=== PATIENT | male | born 1960 | race Caucasian/White ===

== ENCOUNTER → 2016-08-19 | Day surgery (SDC) | payer BC, OTHER ==
[~2016-08-19] VITALS: Ht 167.6 cm; Wt 65.8 kg
[~2016-08-19] MED LIST: AFRI0.052; BREO1INH INH; DESFLURANE 240 ML INHALANT As Ordered ONE; GLYCOPYRROLATE INJ 0.2 MG/ML 2 ML VIAL As Ordered ONE; IBUPROFEN 800 MG TAB PO PRN; LIDOCAINE 2% INJ 100 MG/5 ML SDV (FOR ANES.) As Ordered ONE; LIDOCAINE W/EPINEPHRINE 1% 20ML VIAL As Ordered ONE; LIDOCAINE W/EPINEPHRINE 1% 20ML VIAL XX ONE; LR 1,000 ML IV SCH; MEPERIDINE INJ 25 MG/ML VIAL (J2175) As Ordered ONE; METHYLENE BLUE 1% 10 ML VIAL (Q9968) As Ordered ONE; METHYLENE BLUE 1% 10 ML VIAL (Q9968) XX ONE; METOCLOPRAMIDE INJ 10MG/2ML VIAL (J2765) As Ordered ONE; MIDAZOLAM INJ 2 MG/2 ML VIAL (J2250) As Ordered ONE; NEOSTIGMINE 1MG/ML 5 ML SYRINGE (J2710) As Ordered ONE; ONDANSETRON 4MG/2ML VIAL (J2405) As Ordered ONE; ONDANSETRON 4MG/2ML VIAL (J2405) IV PRN; OXYMETAZOLINE NASAL SPRAY (AFRIN) As Ordered ONE; OXYMETAZOLINE NASAL SPRAY (AFRIN) XX ONE; PHENYLephrine HCL 500 MCG/5 ML (100MCG/ML) SYRINGE (J2370) As Ordered ONE; PROPOFOL 200 MG/20 ML VIAL As Ordered ONE; ROCURONIUM BROMIDE 50 MG/5 ML VIAL As Ordered ONE; TRAM50TA2 PO; dexameTHASONE 4 MG/ML 1ML VIAL (J1100) As Ordered ONE; fentaNYL 100 MCG/2 ML INJECTION (J3010) IV PRN; fentaNYL 250 MCG/5 ML INJECTION (J3010) As Ordered ONE
[2016-08-19] MEDS: MEPERIDINE INJ 25 MG/ML VIAL (J2175) IV PRN ×2 (13:26→13:37)
[2016-08-19] MEDS: PERCOCET 5MG/325MG TAB PO PRN ×2 (13:47→14:08)
[2016-08-19] MEDS: HYDROmorphone HCL 1 MG/ML SYRINGE (J1170) IV PRN ×2 (13:51→14:00)
[2016-08-19 15:00] VITALS: BP 125/75
--- NOTE | 2016-08-19 17:06 | ECGEPIP ---
Stationary ECG Study 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 Electronically Signed On 08-19-2016 16:44:07 EST by Vineet Garcia
--- NOTE | 2016-08-25 06:13 | RO ---
DATE OF PROCEDURE: 08/19/2016 PREOPERATIVE DIAGNOSES: 1. Deviated septum. 2. Chronic rhinitis. POSTOPERATIVE DIAGNOSES: 1. Deviated septum. 2. Chronic rhinitis. PROCEDURE: Septoplasty, partial reduction inferior turbinates. SURGEON: Dr. 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 INDICATIONS: This is a 56-year-old with long history of nasal obstruction unrelieved by medical management. DESCRIPTION OF PROCEDURE: Satisfactory general endotracheal anesthesia administered. The nose was prepared for surgery by placing cotton-soaked pledgets with Afrin solution to nasal cavity bilaterally. 1% Xylocaine with 1:100,000 epinephrine was used to inject into the nasal septum and inferior turbinates. A [place] incision was made on the left side of the nose. A mucoperichondrial flap and envelope was created on the left side of the nasal septum and carried down to the junction of the bony and cartilaginous septum. This was then with an elevator, and an envelope was then created on the right side of the septum. A [place] scissors was used to make a cut high in the perpendicular plate in the midportion of the vomer, and a central segment of the bony septum was resected. Next, with the round knife on the Burak elevator, a strip of cartilage was resected from the floor of the nose, mobilizing the quadrilateral cartilage and creating a swinging door. Then, a central segment of cartilaginous septum was resected, preserving a 1 cm dorsal and caudal strut. Double-action rongeur was used to take down deflected portions of the perpendicular plate, as well. Finally, the maxillary crest spur was taken down after elevating mucoperiosteum off both sides of it with a chisel. A segment of the resected cartilage was morselized and placed back into the septal envelope. The incision was closed using an interrupted #5-0 chromic suture. Then, a #4-0 plain suture was placed in a nilz-yon-mwwww fashion through the two leaves of mucoperichondrium to appose them. Next, the inferior turbinates were medially infractured. A #15 blade was used to make an incision on the anterior tip of the inferior turbinate. With a Burak elevator, a mucoperiosteal tunnel was created on the medial side of the turbinate. Then, the microdebrider with a 2.9 mm blade was inserted into the tunnel, and the underlying turbinate bone was weakened and partially resected using the microdebrider. Then, the turbinate was laterally outfractured. The posteroinferior tip of the turbinate was then cauterized with suction cautery. Finally, To splints were placed into the nose and sewn to the columella with a #2-0 Prolene suture. The pharyngeal pack, which had been placed at the beginning of the procedure was removed, the throat was suctioned. The patient was then awakened, extubated, and sent to recovery in satisfactory condition. He will discharged home on Percocet for pain as well as docusate 100 mg twice a day. He will be seen back in the office in 3 days for splint removal.
== END | disposition home or self-care (01) ==
LOC: M SDC 10:57
PROVIDERS: ATTEND Specialist
DX: J34.2 Deviated nasal septum (principal); J31.0 Chronic rhinitis; J44.9 Chronic obstructive pulmonary disease, unspecified; Z87.891 Personal history of nicotine dependence
CPT/HCPCS: 30520; 30802; 88300; 93005; J1100; J1170; J2175; J2250; J2370; J2405; J2710; J2765; J3010; Q9968

== ENCOUNTER → 2016-10-02 | Outpatient (CLI) | payer BC, OTHER ==
[~2016-10-02] MED LIST changes: -DESFLURANE 240 ML INHALANT As Ordered ONE; -GLYCOPYRROLATE INJ 0.2 MG/ML 2 ML VIAL As Ordered ONE; -IBUPROFEN 800 MG TAB PO PRN; -LIDOCAINE 2% INJ 100 MG/5 ML SDV (FOR ANES.) As Ordered ONE; -LIDOCAINE W/EPINEPHRINE 1% 20ML VIAL As Ordered ONE; -LIDOCAINE W/EPINEPHRINE 1% 20ML VIAL XX ONE; -LR 1,000 ML IV SCH; -MEPERIDINE INJ 25 MG/ML VIAL (J2175) As Ordered ONE; -METHYLENE BLUE 1% 10 ML VIAL (Q9968) As Ordered ONE; -METHYLENE BLUE 1% 10 ML VIAL (Q9968) XX ONE; -METOCLOPRAMIDE INJ 10MG/2ML VIAL (J2765) As Ordered ONE; -MIDAZOLAM INJ 2 MG/2 ML VIAL (J2250) As Ordered ONE; -NEOSTIGMINE 1MG/ML 5 ML SYRINGE (J2710) As Ordered ONE; -ONDANSETRON 4MG/2ML VIAL (J2405) As Ordered ONE; -ONDANSETRON 4MG/2ML VIAL (J2405) IV PRN; -OXYMETAZOLINE NASAL SPRAY (AFRIN) As Ordered ONE; -OXYMETAZOLINE NASAL SPRAY (AFRIN) XX ONE; -PHENYLephrine HCL 500 MCG/5 ML (100MCG/ML) SYRINGE (J2370) As Ordered ONE; -PROPOFOL 200 MG/20 ML VIAL As Ordered ONE; -ROCURONIUM BROMIDE 50 MG/5 ML VIAL As Ordered ONE; -dexameTHASONE 4 MG/ML 1ML VIAL (J1100) As Ordered ONE; -fentaNYL 100 MCG/2 ML INJECTION (J3010) IV PRN; -fentaNYL 250 MCG/5 ML INJECTION (J3010) As Ordered ONE
--- NOTE | 2016-10-02 10:34 | REP ---
CHEST X-RAY PA LATERAL: 10/02/2016. Comparison: 06/07/2016, 12/15/2015. Clinical history: COPD. Congestion. Findings: Two-view show the lungs hyperinflated with flattening of the diaphragms, increased AP diameter. There is some mild interstitial fibrotic change. Peribronchial thickening noted that might reflect reactive airway disease or bronchitis. Pulmonary artery hypertension is seen with prominence of the central arteries which taper rapidly. No definite infiltrate, effusion, cardiomegaly or edema. The aorta is normal for age. Airway is intact with no compression deformity in the spine on an acute basis. There is minor anterior wedging at T8 and T7 stable. No new or acute compression deformity. Impression: 1. COPD and some pulmonary artery hypertension, stable. There are a few cuffed bronchi in the perihilar regions that may reflect reactive airway disease or bronchitis. No dense consolidation, effusion, edema or other acute finding. Signed by Pa Torres MD 10/02/2016 10:56 A
== END ==
LOC: M ADAMS 10:05
PROVIDERS: ATTEND Physician Assistant Medical
DX: J44.9 Chronic obstructive pulmonary disease, unspecified (principal)

== ENCOUNTER → 2016-12-22 | Outpatient (CLI) | payer BC, OTHER ==
--- NOTE | 2016-12-22 09:31 | REP ---
PA and lateral chest: Comparisons are the PA and lateral plain film study dated 06/07/[address] dated 11/20/2014. There are no infiltrates, effusions, masses or nodules. The lung arce appear hyperinflated, as previously, compatible with COPD but requiring clinical confirmation. On the comparison CT, three tiny lung nodules are identified and unchanged from a CT of 07/16/2009. These nodules are not visible on the PA and lateral plain film studies. Cardiac size is normal. The roxanna and mediastinum are unchanged. There is mild thoracic scoliosis convex right, unchanged. There is demineralization and grade 1 compression deformity of the approximate T8 vertebral body. This is unchanged. Impression: Stable PA and lateral chest. No change from prior studies. Signed by Erasto Poon MD 12/22/2016 09:22 A
[2016-12-22 09:37] LABS: MEAN CORPUSCULAR HEMOGLOBIN 31.3 pg (27.0-33.0); MEAN CORPUSCULAR HGB CONC 35.1 g/dl (32.0-36.5); MEAN CORPUSCULAR VOLUME 89.2 fl (80.0-96.0); RED CELL DISTRIBUTION WIDTH 13.2 % (11.5-14.5); WHITE BLOOD COUNT 3.7 K/mm3 (4.0-10.0)
[2016-12-22 09:50] LABS: ALBUMIN 3.7 GM/DL (3.2-5.2); ALBUMIN/GLOBULIN RATIO 1.16 (1.00-1.93); ALKALINE PHOSPHATASE 81 U/L (45-117); ALT/SGPT 33 U/L (12-78); ANION GAP 3 MEQ/L (8-16); AST/SGOT 19 U/L (15-37); BILIRUBIN,TOTAL 0.5 MG/DL (0.2-1.0); BLOOD UREA NITROGEN 15 MG/DL (7-18); CARBON DIOXIDE LEVEL 32 MEQ/L (21-32); CHLORIDE LEVEL 109 MEQ/L (98-107); CHOLESTEROL LEVEL 212 MG/DL (<200); CREATININE FOR GFR 0.94 MG/DL (0.70-1.30); GLOMERULAR FILTRATION RATE > 60.0 (>56); GLUCOSE, FASTING 113 MG/DL (70-105); POTASSIUM SERUM 4.2 MEQ/L (3.5-5.1); SODIUM LEVEL 144 MEQ/L (136-145); TOTAL PROTEIN 6.9 GM/DL (6.4-8.2); TRIGLYCERIDES LEVEL 92 MG/DL (<150)
--- NOTE | 2016-12-23 13:43 | ECGEPIP ---
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
== END ==
LOC: M LAB 08:41
PROVIDERS: ATTEND Family Medicine
DX: R53.83 Other fatigue (principal); J44.9 Chronic obstructive pulmonary disease, unspecified; N40.1 Benign prostatic hyperplasia with lower urinary tract symptoms

== ENCOUNTER → 2017-08-28 | Outpatient (CLI) | payer BC, OTHER | LOC: M RAD 14:01 | DX: E04.1 Nontoxic single thyroid nodule (principal) | CPT/HCPCS: 76536 ==

== ENCOUNTER → 2018-03-14 | Outpatient (CLI) | payer BC, OTHER ==
[2018-03-14 12:01] LABS: HEMATOCRIT 49.7 % (42.0-52.0); HEMOGLOBIN 17.1 g/dl (13.5-17.5); MEAN CORPUSCULAR HEMOGLOBIN 30.5 pg (27.0-33.0); MEAN CORPUSCULAR HGB CONC 34.4 g/dl (32.0-36.5); MEAN CORPUSCULAR VOLUME 88.8 fl (80.0-96.0); PLATELET COUNT, AUTOMATED 274 10^3/uL (150-450); RED CELL DISTRIBUTION WIDTH 12.8 % (11.5-14.5); WHITE BLOOD COUNT 5.4 10^3/uL (4.0-10.0)
[2018-03-14 13:29] LABS: ALBUMIN 3.8 GM/DL (3.2-5.2); ALBUMIN/GLOBULIN RATIO 1.12 (1.00-1.93); ALKALINE PHOSPHATASE 71 U/L (45-117); ALT/SGPT 26 U/L (12-78); ANION GAP 6 MEQ/L (8-16); AST/SGOT 16 U/L (7-37); BILIRUBIN,TOTAL 0.6 MG/DL (0.2-1.0); BLOOD UREA NITROGEN 18 MG/DL (7-18); CALCIUM LEVEL 8.8 MG/DL (8.5-10.1); CARBON DIOXIDE LEVEL 28 MEQ/L (21-32); CHLORIDE LEVEL 110 MEQ/L (98-107); CHOLESTEROL LEVEL 206 MG/DL (<200); CHOLESTEROL RISK RATIO 4.478 (<5); CREATININE FOR GFR 0.87 MG/DL (0.70-1.30); GLOMERULAR FILTRATION RATE > 60.0 (>56); GLUCOSE, FASTING 96 MG/DL (70-100); HDL CHOLESTEROL 46 MG/DL (>40); LDL CHOLESTEROL 143 MG/DL (<100); NON-HDL-C 160 MG/DL; POTASSIUM SERUM 4.6 MEQ/L (3.5-5.1); PROSTATIC SPECIFIC AG MONITOR 0.95 NG/ML (< 4.0); SODIUM LEVEL 144 MEQ/L (136-145); TESTOSTERONE 483 NG/DL (241-827); THYROID STIMULATING HORMONE 0.295 uIU/ML (0.358-3.740); TOTAL 25(OH) VITAMIN D 34.9 NG/ML (30.0-100.0); TOTAL PROTEIN 7.2 GM/DL (6.4-8.2); TRIGLYCERIDES LEVEL 83 MG/DL (<150)
[2018-03-14 16:01] LABS: ESTIMATED AVERAGE GLUCOSE 111 MG/DL (60-110); HEMOGLOBIN A1c 5.5 %
== END ==
LOC: M LAB 10:56
DX: I10 Essential (primary) hypertension (principal); J44.9 Chronic obstructive pulmonary disease, unspecified; R53.83 Other fatigue
CPT/HCPCS: 71046

== ENCOUNTER 2018-05-02 10:15 | Day surgery (SDC) | payer BC, OTHER ==
[2018-05-02] MEDS: NS 1,000 ML IV (10:30)
[2018-05-02] MEDS ORDERED: PROPOFOL 200 MG/20 ML VIAL As Ordered (10:41)
[2018-05-02] MEDS ORDERED: LIDOCAINE 2% INJ 100 MG/5 ML SDV (FOR ANES.) As Ordered (10:41)
== END 2018-05-02 13:09 | disposition home or self-care (01) ==
LOC: M OPP 13:09
DX: Z12.11 Encounter for screening for malignant neoplasm of colon (principal); Z86.010 Personal history of colon polyps; M12.9 Arthropathy, unspecified; J44.9 Chronic obstructive pulmonary disease, unspecified; Z79.899 Other long term (current) drug therapy
CPT/HCPCS: 45378

== ENCOUNTER → 2018-09-07 | Outpatient (REF) | payer OTHER | LOC: M LAB REF 19:09 | PROVIDERS: ATTEND Physician Assistant Medical | DX: J02.9 Acute pharyngitis, unspecified (principal) ==

== ENCOUNTER → 2018-10-23 | Outpatient (CLI) | payer BC, OTHER ==
--- NOTE | 2018-10-24 03:23 | REP ---
Clinical: Trauma. Technique: Frontal view of the chest with four views of the left hemithorax. Findings: Frontal view of the chest demonstrates no acute cardiopulmonary process. Multiple views of the left hemithorax demonstrates no obvious acute rib fracture, but very subtle injury involving the lateral aspect of the sixth through ninth ribs cannot definitively be excluded. Impression: No definite acute fracture identified. However subtle injuries involving the lateral aspect of the 6th - 9th ribs cannot definitively be excluded. Electronically Signed by Lamont Diamond MD 10/24/2018 03:14 A
== END ==
LOC: M ADAMS 11:09
PROVIDERS: ATTEND Physician Assistant Medical
DX: S20.212A Contusion of left front wall of thorax, initial encounter (principal); X58.XXXA Exposure to other specified factors, initial encounter; Y92.89 Other specified places as the place of occurrence of the external cause

== ENCOUNTER → 2018-11-16 | Outpatient (REF) | payer OTHER | LOC: M LAB REF 12:15 | PROVIDERS: ATTEND Physician Assistant Medical | DX: J02.9 Acute pharyngitis, unspecified (principal) ==

== ENCOUNTER → 2019-03-18 | Outpatient (CLI) | payer BC, OTHER ==
[2019-03-18 12:18] LABS: HEMATOCRIT 49.2 % (42.0-52.0); HEMOGLOBIN 17.3 g/dl (13.5-17.5); MEAN CORPUSCULAR HEMOGLOBIN 30.1 pg (27.0-33.0); MEAN CORPUSCULAR HGB CONC 35.2 g/dl (32.0-36.5); MEAN CORPUSCULAR VOLUME 85.6 fl (80.0-96.0); PLATELET COUNT, AUTOMATED 238 10^3/uL (150-450); RED BLOOD COUNT 5.75 10^6/uL (4.30-6.10); WHITE BLOOD COUNT 4.3 10^3/uL (4.0-10.0)
[2019-03-18 12:43] LABS: ALT/SGPT 30 U/L (12-78); BILIRUBIN,TOTAL 0.9 MG/DL (0.2-1.0); BLOOD UREA NITROGEN 16 MG/DL (7-18); CALCIUM LEVEL 9.1 MG/DL (8.5-10.1); CARBON DIOXIDE LEVEL 26 MEQ/L (21-32); CHLORIDE LEVEL 111 MEQ/L (98-107); CHOLESTEROL LEVEL 219 MG/DL (<200); CREATININE FOR GFR 0.86 MG/DL (0.70-1.30); GLOMERULAR FILTRATION RATE > 60.0 (>56); GLUCOSE, FASTING 92 MG/DL (70-100); HDL CHOLESTEROL 50 MG/DL (>40); LDL CHOLESTEROL 143 MG/DL (<100); NON-HDL-C 169 MG/DL; POTASSIUM SERUM 4.4 MEQ/L (3.5-5.1); PROSTATIC SPECIFIC AG MONITOR 0.83 NG/ML (< 4.00); SODIUM LEVEL 143 MEQ/L (136-145); TESTOSTERONE 504 NG/DL (241-827); THYROID STIMULATING HORMONE 0.557 uIU/ML (0.358-3.740); TOTAL PROTEIN 6.8 GM/DL (6.4-8.2); TRIGLYCERIDES LEVEL 130 MG/DL (<150)
[2019-03-18 13:34] LABS: HEMOGLOBIN A1c 5.3 %
--- NOTE | 2019-03-18 13:58 | REP ---
PA and lateral chest: Comparison is 03/14/2018. The lung arce are clear. The cardiac size is normal. The roxanna, mediastinum, and skeletal structures are unremarkable. Impression: Negative PA and lateral chest. There is no interval change. Electronically Signed by Erasto Poon MD 03/18/2019 01:49 P
--- NOTE | 2019-03-18 20:20 | ECGEPIP ---
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
== END ==
LOC: M LAB 11:24
PROVIDERS: ATTEND Family Medicine
DX: J44.9 Chronic obstructive pulmonary disease, unspecified (principal)

== ENCOUNTER → 2019-07-04 | Outpatient (CLI) | payer BC, OTHER ==
--- NOTE | 2019-07-04 14:00 | ECGEPIP ---
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
== END ==
LOC: M EKG 08:35
PROVIDERS: ATTEND Orthopaedic Surgery
DX: Z01.810 Encounter for preprocedural cardiovascular examination (principal)

== ENCOUNTER → 2019-10-30 | Outpatient (CLI) | payer BC, OTHER ==
--- NOTE | 2019-10-31 02:54 | REP ---
Clinical: COPD . Comparison: 03/18/2019 . Technique: PA and lateral. Findings: The mediastinum and cardiac silhouette are normal. The lung arce demonstrate stable chronic changes without acute consolidation, effusion, or pneumothorax. The skeletal structures are intact and normal. Impression: 1. No acute cardiopulmonary process. Electronically Signed by Lamont Diamond MD 10/31/2019 02:46 A
== END ==
LOC: M WUC 14:02
PROVIDERS: ATTEND Family Medicine
DX: J44.9 Chronic obstructive pulmonary disease, unspecified (principal)

== ENCOUNTER → 2020-02-06 | Outpatient (CLI) | payer BC, OTHER ==
--- NOTE | 2020-03-06 15:03 | SLEEPCENT ---
DATE: 02/06/2020 ORDERED BY: Kati Villa Nocturnal polysomnography was performed for evaluation of sleep physiology in this patient with a history of snoring and nonrestorative sleep. There were 7 hours and 23 minutes of data reviewed. There was 383.5 minutes of sleep identified. Sleep latency was mildly prolonged at 29 minutes. REM latency was short at 55 minutes. Sleep architecture showed significant fragmentation. Overall sleep efficiency was 87.4%. There was a significant reduction in REM time, and three REM cycles were noted. The electrocardiogram showed a sinus rhythm with an average heart rate of 60 beats per minute. EEG showed normal waveforms for wake and sleep. There were 49 respiratory events identified of 10 seconds in duration or greater for an apnea-hypopnea index of 7.7. The events were more frequently obstructive; however, 22 mixed and central apneas were also seen. Obstructive events were seen regardless of sleep stage or body posture. Arousals from respiratory events occurred 3.8 times per hour, and oxygen desaturations were seen below 90% with significant limb activity, but limb movement arousal index was only 7. IMPRESSION: Obstructive sleep apnea syndrome (G47.33). Apnea-hypopnea index 7.7. RECOMMENDATION: The patient should be encouraged to return to the sleep disorder center for pressure therapy. In the interim, alcohol and sedative avoidance should be practiced and caution exercised during the operation of motor vehicles. ALBERTOD
== END ==
LOC: M SLEEP 20:00
PROVIDERS: ATTEND Nurse Practitioner Adult Health
DX: G47.33 Obstructive sleep apnea (adult) (pediatric) (principal)

== ENCOUNTER → 2020-02-17 | Outpatient (CLI) | payer BC, OTHER ==
--- NOTE | 2020-03-19 11:16 | REP ---
CHEST X-RAY CLINICAL: Chronic obstructive pulmonary disease (COPD). Pneumonia. TECHNIQUE: PA and lateral. COMPARISON: 10/30/2019. FINDINGS: Mediastinum and cardiac silhouette are normal. Lung arce demonstrate stable chronic interstitial changes consistent with COPD. No focal consolidation, effusion, or pneumothorax. Skeletal structures are intact. IMPRESSION: Chronic stable changes. No focal consolidation. MTDD
== END ==
LOC: M ADAMS 10:31
PROVIDERS: ATTEND Family Medicine
DX: J44.9 Chronic obstructive pulmonary disease, unspecified (principal); J18.9 Pneumonia, unspecified organism

== ENCOUNTER → 2020-04-07 | Outpatient (CLI) | payer BC, OTHER ==
--- NOTE | 2020-04-28 13:41 | SLEEPCENT ---
DATE: 04/07/2020 ORDERED BY: Kati Villa NP Nocturnal polysomnography was performed for the titration of pressure therapy in this patient with obstructive sleep apnea syndrome, apnea-hypopnea index 7.7. For testing, the patient was fit with a ResMed Airfit F20 full face mask of large size, 4 cm of water pressure were applied to the circuit and the lights were extinguished. Seven hours and 54 minutes of data were reviewed. There were 350.5 minutes of sleep identified. Sleep latency was prolonged at 42.5 minutes. REM latency was prolonged at 126 minutes. Sleep architecture improved later in the study on optimal pressure therapy. Overall sleep efficiency was 74.7%. The electrocardiogram showed a sinus rhythm with an average heart rate of 60 beats per minute. EEG showed normal waveforms for wake and sleep. Respiratory events were fully palliated with CPAP at a pressure of +11. There was some activity in the limb leads. Limb movement arousal index on this occasion was 6.3. IMPRESSION: Obstructive sleep apnea syndrome (G47.33). RECOMMENDATION: Nightly use of pressure therapy 11 cm of water. MTDD
== END ==
LOC: M SLEEP 20:00
PROVIDERS: ATTEND Nurse Practitioner Adult Health
DX: G47.33 Obstructive sleep apnea (adult) (pediatric) (principal)

== ENCOUNTER → 2020-05-06 | Outpatient (CLI) | payer BC, OTHER ==
[2020-05-06 12:33] LABS: HEMATOCRIT 50.1 % (42.0-52.0); MEAN CORPUSCULAR HEMOGLOBIN 29.5 pg (27.0-33.0); MEAN CORPUSCULAR HGB CONC 33.9 g/dl (32.0-36.5); MEAN CORPUSCULAR VOLUME 86.8 fl (80.0-96.0); PLATELET COUNT, AUTOMATED 241 10^3/uL (150-450); RED BLOOD COUNT 5.77 10^6/uL (4.30-6.10); WHITE BLOOD COUNT 4.3 10^3/uL (4.0-10.0)
[2020-05-06 13:04] LABS: ALBUMIN 4.3 GM/DL (3.2-5.2); ALT/SGPT 40 U/L (12-78); BILIRUBIN,TOTAL 0.9 MG/DL (0.2-1.0); BLOOD UREA NITROGEN 17 MG/DL (7-18); CALCIUM LEVEL 9.6 MG/DL (8.8-10.2); CARBON DIOXIDE LEVEL 26 MEQ/L (21-32); CHLORIDE LEVEL 108 MEQ/L (98-107); CHOLESTEROL LEVEL 208 MG/DL (<200); CHOLESTEROL RISK RATIO 3.924 (<5); CREATININE FOR GFR 0.94 MG/DL (0.70-1.30); GLOMERULAR FILTRATION RATE > 60.0 (>49); GLUCOSE, FASTING 102 MG/DL (70-100); HDL CHOLESTEROL 53 MG/DL (>40); LDL CHOLESTEROL 140 MG/DL (<100); NON-HDL-C 155 MG/DL; POTASSIUM SERUM 4.4 MEQ/L (3.5-5.1); PROSTATIC SPECIFIC AG MONITOR 1.36 NG/ML (< 4.00); SODIUM LEVEL 140 MEQ/L (136-145); TESTOSTERONE 642 NG/DL (241-827); THYROID STIMULATING HORMONE 0.712 uIU/ML (0.358-3.740); TRIGLYCERIDES LEVEL 75 MG/DL (<150)
[2020-05-06 14:12] LABS: HEMOGLOBIN A1c 5.2 %
--- NOTE | 2020-05-06 17:28 | ECGEPIP ---
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
--- NOTE | 2020-05-07 03:18 | REP ---
INDICATION: COPD,FATIGUE, LAB 1ST, EKG 2ND, XRAY 3RD COMPARISON: 02/17/2020 TECHNIQUE: PA and lateral. FINDINGS: The mediastinum and cardiac silhouette are normal. The lung arce are clear and without acute consolidation, effusion, or pneumothorax. The skeletal structures are intact and normal. IMPRESSION: No acute cardiopulmonary process. <Electronically signed by Lamont Diamond > 05/07/20 [id number]
== END ==
LOC: M LAB 11:54
PROVIDERS: ATTEND Family Medicine
DX: J44.9 Chronic obstructive pulmonary disease, unspecified (principal); R53.83 Other fatigue; E29.1 Testicular hypofunction

== ENCOUNTER → 2020-05-27 | Outpatient (REF) | payer OTHER | LOC: M LAB REF 13:17 | PROVIDERS: ATTEND Family Medicine | DX: M54.5 Low back pain (principal) ==

== ENCOUNTER → 2020-09-08 | Outpatient (CLI) | payer BC, OTHER ==
[2020-09-08 12:30] LABS: FREE THYROXINE INDEX 3.8 % (1.4-3.8); THYROID STIMULATING HORMONE 0.506 uIU/ML (0.358-3.740); THYROXINE (T4) 11.9 UG/DL (4.5-12.0); TOTAL T3 144.8 NG/DL (60.0-181.0)
[2020-09-09 11:09] LABS: SSA SJOGRENS A <0.2 AI (0.0-0.9); SSB SJOGRENS B <0.2 AI (0.0-0.9)
== END ==
LOC: M LAB 10:03
PROVIDERS: ATTEND Ophthalmology
DX: H16.223 Keratoconjunctivitis sicca, not specified as Sjogren's, bilateral (principal)

== ENCOUNTER → 2021-01-15 | Outpatient (CLI) | payer BC, OTHER ==
--- NOTE | 2021-01-15 11:32 | REP ---
INDICATION: COPD. COMPARISON: Comparison chest x-ray May 06, 2020. TECHNIQUE: Two views.. FINDINGS: The lungs are well inflated and free of infiltrate. The pleural angles are sharp. The heart size is normal. Pulmonary vasculature is not increased. No significant bony abnormality is seen. IMPRESSION: No active disease.. <Electronically signed by Abdiel Truong > 01/15/21 [id number]
== END ==
LOC: M RAD 10:27
PROVIDERS: ATTEND Family Medicine
DX: J44.9 Chronic obstructive pulmonary disease, unspecified (principal)

== ENCOUNTER → 2021-05-11 | Outpatient (CLI) | payer BC, OTHER ==
--- NOTE | 2021-05-11 11:37 | REP ---
INDICATION: COPD COMPARISON: 01/15/2021 TECHNIQUE: PA and lateral. FINDINGS: The mediastinum and cardiac silhouette are normal. The lung arce are clear and without acute consolidation, effusion, or pneumothorax. The skeletal structures are intact and normal. IMPRESSION: No acute cardiopulmonary process. <Electronically signed by Lamont Diamond > 05/11/21 [id number]
== END ==
LOC: M RAD 11:14
PROVIDERS: ATTEND Family Medicine
DX: J44.9 Chronic obstructive pulmonary disease, unspecified (principal)

== ENCOUNTER → 2021-06-30 | Outpatient (CLI) | payer BC, OTHER ==
[2021-06-30 12:54] LABS: HEMATOCRIT 47.8 % (42.0-52.0); HEMOGLOBIN 16.6 g/dl (13.5-17.5); MEAN CORPUSCULAR HEMOGLOBIN 30.3 pg (27.0-33.0); MEAN CORPUSCULAR HGB CONC 34.7 g/dl (32.0-36.5); MEAN CORPUSCULAR VOLUME 87.2 fl (80.0-96.0); PLATELET COUNT, AUTOMATED 229 10^3/uL (150-450); RED BLOOD COUNT 5.48 10^6/uL (4.30-6.10); WHITE BLOOD COUNT 5.4 10^3/uL (4.0-10.0)
[2021-06-30 13:59] LABS: ALT/SGPT 34 U/L (12-78); BILIRUBIN,TOTAL 0.6 MG/DL (0.2-1.0); BLOOD UREA NITROGEN 12 MG/DL (7-18); CALCIUM LEVEL 9.1 MG/DL (8.8-10.2); CARBON DIOXIDE LEVEL 27 MEQ/L (21-32); CHLORIDE LEVEL 110 MEQ/L (98-107); CHOLESTEROL LEVEL 203 MG/DL (<200); CHOLESTEROL RISK RATIO 3.903 (<5); GLOMERULAR FILTRATION RATE > 60.0 (>49); GLUCOSE, FASTING 99 MG/DL (70-100); HDL CHOLESTEROL 52 MG/DL (>40); LDL CHOLESTEROL 128 MG/DL (<100); NON-HDL-C 151 MG/DL; POTASSIUM SERUM 4.1 MEQ/L (3.5-5.1); SODIUM LEVEL 140 MEQ/L (136-145); TESTOSTERONE 450 NG/DL (241-827); TRIGLYCERIDES LEVEL 116 MG/DL (<150)
[2021-06-30 14:00] LABS: ALBUMIN 3.9 GM/DL (3.2-5.2); PROSTATIC SPECIFIC AG MONITOR 1.01 NG/ML (< 4.00); THYROID STIMULATING HORMONE 0.473 uIU/ML (0.358-3.740)
[2021-06-30 14:04] LABS: HEMOGLOBIN A1c 5.6 %
--- NOTE | 2021-06-30 20:52 | ECGEPIP ---
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 Nonspecific ST-T abnormality. No significant change compared with 05/06/2020. Electronically Signed on 06-30-2021 20:52:12 EST by Vineet Garcia
--- NOTE | 2021-07-01 07:31 | REP ---
INDICATION: WPN SECATICA COMPARISON: None. TECHNIQUE: AP, lateral, bilateral oblique, and coned-down views of the lumbar spine. FINDINGS: Alignment and lordosis maintained. Vertebral bodies are intact. No acute fracture/compression injury or subluxation. Disc spaces are relatively normal/age-appropriate. No obvious spondylolysis or spondylolisthesis. IMPRESSION: Age-appropriate lumbosacral Spine series. No acute fracture/compression injury or subluxation. <Electronically signed by Lamont Diamond > 07/01/21 [id number]
== END ==
LOC: M EKG 11:50
PROVIDERS: ATTEND Family Medicine
DX: J44.9 Chronic obstructive pulmonary disease, unspecified (principal); I10 Essential (primary) hypertension; M54.30 Sciatica, unspecified side

== ENCOUNTER → 2021-11-30 | Outpatient (REF) | payer BC, OTHER | LOC: M LAB REF 12:57 | PROVIDERS: ATTEND Family Medicine | DX: Z79.899 Other long term (current) drug therapy (principal) ==

== ENCOUNTER → 2022-01-05 | Outpatient (CLI) | payer BC, OTHER | LOC: M RAD 08:53 | PROVIDERS: ATTEND Family Medicine | DX: J18.9 Pneumonia, unspecified organism (principal) ==

== ENCOUNTER → 2022-01-21 | Outpatient (CLI) | payer BC, OTHER | LOC: M RAD 10:17 | PROVIDERS: ATTEND Family Medicine | DX: J44.9 Chronic obstructive pulmonary disease, unspecified (principal); R91.8 Other nonspecific abnormal finding of lung field ==

== ENCOUNTER 2022-02-19 19:14 | Emergency (ER) | payer BC, OTHER ==
[~2022-02-19] VITALS: Ht 167.6 cm; Wt 67.7 kg
[2022-02-19] MEDS ORDERED: ADV250INH PO (19:31)
[2022-02-19] MEDS ORDERED: traMADol 50 MG TAB PO ONE (20:50)
[2022-02-19] MEDS ORDERED: LIDOCAINE 4% CREAM 5GM (LMX4) TOP ONE (20:50)
[2022-02-19] MEDS ORDERED: LIDO1CRE2 TOP (20:51)
[2022-02-19] MEDS ORDERED: TRAM50TA2 PO (20:51)
[2022-02-19 21:29] VITALS: BP 127/70
== END 2022-02-19 21:32 | disposition home or self-care (01) ==
LOC: M ED 19:14
DX: S89.91XA Unspecified injury of right lower leg, initial encounter (principal); M25.461 Effusion, right knee; W19.XXXA Unspecified fall, initial encounter; Y92.099 Unspecified place in other non-institutional residence as the place of occurrence of the external cause; Y93.89 Activity, other specified; J44.9 Chronic obstructive pulmonary disease, unspecified

== ENCOUNTER → 2022-06-03 | Outpatient (CLI) | payer BC, OTHER ==
[~2022-06-03] MED LIST changes: +ADV250INH PO; +LIDO1CRE2 TOP
[2022-06-03 09:42] LABS: APPEARANCE, URINE MANUAL CLEAR (CLEAR); COLOR, URINE MANUAL YELLOW (YELLOW)
[2022-06-03 09:43] LABS: BILIRUBIN, URINE MANUAL NEGATIVE (NEGATIVE); BLOOD URINE MANUAL NEGATIVE (NEGATIVE); GLUCOSE, URINE (UA) MANUAL NEGATIVE (NEGATIVE); KETONE, URINE MANUAL NEGATIVE (NEGATIVE); LEUKOCYTE ESTERASE, URINE MAN NEGATIVE (NEGATIVE); NITRITE, URINE MANUAL NEGATIVE (NEGATIVE); PROTEIN, URINE MANUAL NEGATIVE (NEGATIVE); UROBILINOGEN, URINE MANUAL NORMAL (NORMAL)
[2022-06-03 09:44] LABS: HEMATOCRIT 50.4 % (42.0-52.0); HEMOGLOBIN 17.2 g/dl (13.5-17.5); MEAN CORPUSCULAR HEMOGLOBIN 29.8 pg (27.0-33.0); MEAN CORPUSCULAR HGB CONC 34.1 g/dl (32.0-36.5); MEAN CORPUSCULAR VOLUME 87.2 fl (80.0-96.0); PLATELET COUNT, AUTOMATED 235 10^3/uL (150-450); RED BLOOD COUNT 5.78 10^6/uL (4.30-6.10); WHITE BLOOD COUNT 4.9 10^3/uL (4.0-10.0)
[2022-06-03 09:51] LABS: HEMOGLOBIN A1c 5.2 % (4.0-6.0)
[2022-06-03 10:17] LABS: ALBUMIN 3.9 G/DL (3.2-5.2); ALKALINE PHOSPHATASE 69 U/L (46-116); ALT/SGPT 26 U/L (7.0-40); AST/SGOT 17 U/L (<34); BILIRUBIN,TOTAL 0.7 MG/DL (0.3-1.2); BLOOD UREA NITROGEN 14 MG/DL (9-23); CALCIUM LEVEL 8.8 MG/DL (8.3-10.6); CARBON DIOXIDE LEVEL 26 MMOL/L (20-31); CHLORIDE LEVEL 108 MMOL/L (98-107); CHOLESTEROL LEVEL 196 MG/DL (<200); CHOLESTEROL RISK RATIO 4.06 (<5); GLOMERULAR FILTRATION RATE > 60.0 (>49); GLUCOSE, FASTING 106 MG/DL (74-106); HDL CHOLESTEROL 48.2 MG/DL (>40); LDL CHOLESTEROL 125.4 MG/DL (<100); NON-HDL-C 148 MG/DL; POTASSIUM SERUM 4.6 MMOL/L (3.5-5.1); PROSTATIC SPECIFIC AG MONITOR 0.85 NG/ML (< 4.00); SODIUM LEVEL 142 MMOL/L (136-145); TESTOSTERONE 624 NG/DL (241-827); THYROID STIMULATING HORMONE 1.035 uIU/ML (0.55-4.78); TRIGLYCERIDES LEVEL 112 MG/DL (<150)
== END ==
LOC: M RAD 08:28
PROVIDERS: ATTEND Family Medicine
DX: I10 Essential (primary) hypertension (principal); R53.83 Other fatigue; E03.9 Hypothyroidism, unspecified; M25.552 Pain in left hip

== ENCOUNTER → 2022-07-05 | Outpatient (CLI) | payer BC, OTHER | LOC: M RAD 08:45 | PROVIDERS: ATTEND Family Medicine | DX: J44.9 Chronic obstructive pulmonary disease, unspecified (principal) ==

== ENCOUNTER → 2022-12-19 | Outpatient (CLI) | payer BC, OTHER | LOC: M RAD 09:52 | PROVIDERS: ATTEND Family Medicine | DX: J44.9 Chronic obstructive pulmonary disease, unspecified (principal); M51.34 Other intervertebral disc degeneration, thoracic region ==

== ENCOUNTER → 2023-02-24 | Outpatient (CLI) | payer BC, OTHER | LOC: M RAD 09:08 | PROVIDERS: ATTEND Family Medicine | DX: J44.9 Chronic obstructive pulmonary disease, unspecified (principal); M47.814 Spondylosis without myelopathy or radiculopathy, thoracic region ==

== ENCOUNTER → 2023-04-19 | Outpatient (CLI) | payer BC, OTHER ==
[2023-04-19 11:01] LABS: HEMATOCRIT 47.2 % (42.0-52.0); HEMOGLOBIN 16.6 g/dl (13.5-17.5); MEAN CORPUSCULAR HEMOGLOBIN 30.2 pg (27.0-33.0); MEAN CORPUSCULAR HGB CONC 35.2 g/dl (32.0-36.5); PLATELET COUNT, AUTOMATED 219 10^3/uL (150-450); RED BLOOD COUNT 5.49 10^6/uL (4.30-6.10); WHITE BLOOD COUNT 5.7 10^3/uL (4.0-10.0)
[2023-04-19 11:40] LABS: ALKALINE PHOSPHATASE 80 U/L (46-116); ALT/SGPT 20 U/L (7.0-40); AST/SGOT 17 U/L (<34); BILIRUBIN,TOTAL 0.9 MG/DL (0.3-1.2); BLOOD UREA NITROGEN 17 MG/DL (9-23); CALCIUM LEVEL 9.1 MG/DL (8.3-10.6); CARBON DIOXIDE LEVEL 23 MMOL/L (20-31); CHLORIDE LEVEL 109 MMOL/L (98-107); CHOLESTEROL LEVEL 198 MG/DL (<200); CHOLESTEROL RISK RATIO 3.84 (<5); CREATININE FOR GFR 0.74 MG/DL (0.70-1.30); GLOMERULAR FILTRATION RATE > 60.0 (>49); GLUCOSE, FASTING 101 MG/DL (74-106); HDL CHOLESTEROL 51.5 MG/DL (>40); LDL CHOLESTEROL 125.7 MG/DL (<100); NON-HDL-C 146.5 MG/DL; POTASSIUM SERUM 3.9 MMOL/L (3.5-5.1); SODIUM LEVEL 143 MMOL/L (136-145); TOTAL PROTEIN 6.8 G/DL (5.7-8.2); TRIGLYCERIDES LEVEL 104 MG/DL (<150)
[2023-04-19 11:46] LABS: THYROID STIMULATING HORMONE 0.853 uIU/ML (0.55-4.78)
== END ==
LOC: M RAD 09:48
PROVIDERS: ATTEND Family Medicine
DX: J44.9 Chronic obstructive pulmonary disease, unspecified (principal); I10 Essential (primary) hypertension; I20.9 Angina pectoris, unspecified; J84.9 Interstitial pulmonary disease, unspecified; I49.9 Cardiac arrhythmia, unspecified

== ENCOUNTER → 2023-05-15 | Outpatient (CLI) | payer BC, OTHER ==
[~2023-05-15] MED LIST changes: +E-Z-GAS II EFFERVESCENT PACKET (SODIUM BICARB./CITRIC ACID/SIMETHICONE) As Ordered ONE; +E-Z-HD 98% w/w 340GM SUSP BTL As Ordered ONE; +E-Z-PAQUE 96% w/w SUSP 176GM BTL As Ordered ONE
== END ==
LOC: M RAD 08:09
PROVIDERS: ATTEND Family Medicine
DX: R13.10 Dysphagia, unspecified (principal)

== ENCOUNTER 2023-08-14 11:28 | Day surgery (SDC) | payer BC, OTHER ==
[~2023-08-14] VITALS: Ht 167.6 cm; Wt 70.7 kg
[~2023-08-14 11:28] MED LIST changes: +DOXA1TAB41 PO; -E-Z-GAS II EFFERVESCENT PACKET (SODIUM BICARB./CITRIC ACID/SIMETHICONE) As Ordered ONE; -E-Z-HD 98% w/w 340GM SUSP BTL As Ordered ONE; -E-Z-PAQUE 96% w/w SUSP 176GM BTL As Ordered ONE; +PANT40TA29 PO; +ROPI1TAB73 PO
[2023-08-14] MEDS: NS 1,000 ML IV ONE (11:49)
[2023-08-14] MEDS ORDERED: fentaNYL 100 MCG/2 ML INJECTION As Ordered ONE (12:48)
[2023-08-14] MEDS ORDERED: propofoL 200 MG/20 ML VIAL As Ordered ONE (12:48)
[2023-08-14] MEDS ORDERED: LIDOCAINE 2% 100MG/5ML SDV (FOR ANES.) As Ordered ONE (12:48)
[2023-08-14 13:32] VITALS: BP 122/78; TEMP 99; O2SAT 96
== END 2023-08-14 13:35 | disposition home or self-care (01) ==
LOC: M OPP 11:28
PROVIDERS: ATTEND Internal Medicine Gastroenterology
DX: Z12.11 Encounter for screening for malignant neoplasm of colon (principal); Z86.010 Personal history of colon polyps; K64.0 First degree hemorrhoids; G47.30 Sleep apnea, unspecified; Z99.89 Dependence on other enabling machines and devices; Z79.51 Long term (current) use of inhaled steroids; Z79.891 Long term (current) use of opiate analgesic; Z79.899 Other long term (current) drug therapy
CPT/HCPCS: 45378; J3010

== ENCOUNTER → 2023-11-28 | Outpatient (CLI) | payer BC, OTHER ==
[2023-11-28 09:54] LABS: HEMATOCRIT 46.4 % (42.0-52.0); HEMOGLOBIN 16.7 g/dl (13.5-17.5); MEAN CORPUSCULAR HEMOGLOBIN 32.2 pg (27.0-33.0); MEAN CORPUSCULAR VOLUME 89.6 fl (80.0-96.0); PLATELET COUNT, AUTOMATED 179 10^3/uL (150-450); RED BLOOD COUNT 5.18 10^6/uL (4.30-6.10); WHITE BLOOD COUNT 3.6 10^3/uL (4.0-10.0)
[2023-11-28 10:01] LABS: HEMOGLOBIN A1c 5.2 % (4.0-6.0)
[2023-11-28 10:07] LABS: PROTHROMBIN TIME 12.9 SECONDS (12.5-14.5)
[2023-11-28 10:31] LABS: ALBUMIN 3.7 G/DL (3.2-5.2); ALKALINE PHOSPHATASE 74 U/L (46-116); ALT/SGPT 46 U/L (7.0-40); AST/SGOT 36 U/L (<34); BILIRUBIN,TOTAL 1.8 MG/DL (0.3-1.2); BLOOD UREA NITROGEN 10 MG/DL (9-23); CALCIUM LEVEL 9.2 MG/DL (8.3-10.6); CARBON DIOXIDE LEVEL 26 MMOL/L (20-31); CHLORIDE LEVEL 108 MMOL/L (98-107); CHOLESTEROL LEVEL 165 MG/DL (<200); CHOLESTEROL RISK RATIO 2.17 (<5); CREATININE FOR GFR 0.85 MG/DL (0.70-1.30); GLOMERULAR FILTRATION RATE > 60.0 (>49); GLUCOSE, FASTING 98 MG/DL (74-106); HDL CHOLESTEROL 75.8 MG/DL (>40); LDL CHOLESTEROL 76.4 MG/DL (<100); NON-HDL-C 89.2 MG/DL; POTASSIUM SERUM 3.9 MMOL/L (3.5-5.1); SODIUM LEVEL 141 MMOL/L (136-145); TOTAL PROTEIN 6.4 G/DL (5.7-8.2); TRIGLYCERIDES LEVEL 64 MG/DL (<150)
[2023-11-28 10:33] LABS: THYROID STIMULATING HORMONE 0.913 uIU/ML (0.55-4.78)
== END ==
LOC: M RAD 08:56
PROVIDERS: ATTEND Family Medicine
DX: Z01.818 Encounter for other preprocedural examination (principal); J44.9 Chronic obstructive pulmonary disease, unspecified; I10 Essential (primary) hypertension

== ENCOUNTER → 2024-01-29 | Outpatient (CLI) | payer BC | LOC: M RAD 10:21 | PROVIDERS: ATTEND Family Medicine | DX: J44.9 Chronic obstructive pulmonary disease, unspecified (principal) ==

== ENCOUNTER → 2024-04-22 | Outpatient (CLI) | payer MEDICARE, BC | LOC: M PLAIMG 09:57 | PROVIDERS: ATTEND Nurse Practitioner Adult Health | DX: R91.8 Other nonspecific abnormal finding of lung field (principal); J43.9 Emphysema, unspecified; I70.0 Atherosclerosis of aorta; N20.0 Calculus of kidney ==

== ENCOUNTER → 2024-06-21 | Outpatient (CLI) | payer MEDICARE, BC ==
[~2024-06-21] MED LIST changes: -ADV250INH PO; +ADVA1AER9 PO; -LIDO1CRE2 TOP; +LIDO4CRE12 TOP
== END ==
LOC: M RAD 09:00 → M LAB 09:00
PROVIDERS: ATTEND Family Medicine
DX: J18.9 Pneumonia, unspecified organism (principal)

== ENCOUNTER → 2024-07-22 | Outpatient (CLI) | payer MEDICARE, BC | LOC: M RAD 09:53 | PROVIDERS: ATTEND Family Medicine | DX: J98.4 Other disorders of lung (principal) ==

== ENCOUNTER → 2024-08-14 | Outpatient (CLI) | payer MEDICARE, BC | LOC: M RAD 10:41 | PROVIDERS: ATTEND Family Medicine | DX: J44.9 Chronic obstructive pulmonary disease, unspecified (principal); S22.32XA Fracture of one rib, left side, initial encounter for closed fracture; X58.XXXA Exposure to other specified factors, initial encounter; Y92.9 Unspecified place or not applicable; Y93.9 Activity, unspecified; Y99.9 Unspecified external cause status ==

== ENCOUNTER → 2024-09-12 | Outpatient (CLI) | payer MEDICARE, BC | LOC: M PLAIMG 09:03 | PROVIDERS: ATTEND Nurse Practitioner Adult Health | DX: R91.8 Other nonspecific abnormal finding of lung field (principal) ==

== ENCOUNTER → 2024-10-01 | Outpatient (CLI) | payer MEDICARE, BC | LOC: M PLARAD 13:30 | PROVIDERS: ATTEND Internal Medicine Pulmonary Disease | DX: R91.8 Other nonspecific abnormal finding of lung field (principal) | CPT/HCPCS: 78815; A9552 ==

== ENCOUNTER → 2024-10-23 | Outpatient (CLI) | payer MEDICARE, BC ==
[~2024-10-23] MED LIST changes: +E-Z-GAS II EFFERVESCENT PACKET (SODIUM BICARB./CITRIC ACID/SIMETHICONE) As Ordered ONE; +E-Z-HD 98% w/w 340GM SUSP BTL As Ordered ONE; +E-Z-PAQUE 96% w/w SUSP 176GM BTL As Ordered ONE
== END ==
LOC: M RAD 08:32
PROVIDERS: ATTEND Family Medicine
DX: K27.9 Peptic ulcer, site unspecified, unspecified as acute or chronic, without hemorrhage or perforation (principal); K44.9 Diaphragmatic hernia without obstruction or gangrene; K21.9 Gastro-esophageal reflux disease without esophagitis; K76.0 Fatty (change of) liver, not elsewhere classified

== ENCOUNTER → 2025-01-02 | Outpatient (CLI) | payer MEDICARE, BC ==
[~2025-01-02] MED LIST changes: -E-Z-GAS II EFFERVESCENT PACKET (SODIUM BICARB./CITRIC ACID/SIMETHICONE) As Ordered ONE; -E-Z-HD 98% w/w 340GM SUSP BTL As Ordered ONE; -E-Z-PAQUE 96% w/w SUSP 176GM BTL As Ordered ONE
== END ==
LOC: M WUC 10:42
PROVIDERS: ATTEND Student in an Organized Health Care Education/Training Program
DX: M19.071 Primary osteoarthritis, right ankle and foot (principal)

== ENCOUNTER → 2025-04-29 | Outpatient (CLI) | payer MEDICARE, BC | LOC: M PLAIMG 08:00 | PROVIDERS: ATTEND Internal Medicine Pulmonary Disease | DX: R91.8 Other nonspecific abnormal finding of lung field (principal) ==